=== PATIENT | female | born 1990 | race Two or more races ===

== ENCOUNTER 2017-01-17 14:00 | Observation (INO) | payer MEDICAID ==
[~2017-01-17 14:00] MED LIST: PREN-125 PO
[2017-01-17] MEDS ORDERED: LEVO125T66 PO (15:17)
== END 2017-01-17 15:50 | disposition home or self-care (01) | DRG 566 ==
LOC: LDRP 14:00
PROVIDERS: ADMIT Obstetrics & Gynecology; ATTEND Obstetrics & Gynecology
DX: O26.893 Other specified pregnancy related conditions, third trimester (principal); R10.2 Pelvic and perineal pain; Z3A.30 30 weeks gestation of pregnancy
CPT/HCPCS: 59025; 76818; 81002; G0378

== ENCOUNTER 2017-01-24 13:35 | Observation (INO) | payer MEDICAID ==
[~2017-01-24 13:35] MED LIST changes: +LEVO125T66 PO
[2017-01-24] MEDS ORDERED: LACTATED RINGER'S 1,000 ML IV ONE (15:06)
[2017-01-24 16:15] LABS: Urine Bilirubin Negative (Negative); Urine Blood Negative /uL (Negative); Urine Color Yellow (Yellow); Urine Glucose Normal (Normal); Urine Ketone Negative (Negative); Urine Mucus FEW (None Seen); Urine Nitrite Negative (Negative); Urine RBC 3 /hpf (0 - 4); Urine Squamous Epithelial Cell MOD /hpf (<5); Urine Urobilinogen Normal (Negative)
== END 2017-01-24 16:40 | disposition home or self-care (01) | DRG 563 ==
LOC: LDRP 13:35
PROVIDERS: ADMIT Specialist; ATTEND Specialist
DX: O60.03 Preterm labor without delivery, third trimester (principal); Z3A.31 31 weeks gestation of pregnancy
CPT/HCPCS: 59025; 76805; 76818; 80307; 81001; 81002; 96360; 96361; G0378; 96366

== ENCOUNTER 2017-01-31 13:55 | Observation (INO) | payer MEDICAID | END 2017-01-31 16:00 | disposition home or self-care (01) | DRG 566 | LOC: LDRP 13:55 | PROVIDERS: ADMIT Obstetrics & Gynecology; ATTEND Obstetrics & Gynecology | DX: O99.283 Endocrine, nutritional and metabolic diseases complicating pregnancy, third trimester (principal); E03.9 Hypothyroidism, unspecified; Z3A.32 32 weeks gestation of pregnancy | CPT/HCPCS: 59025; 76818; 81002; G0378 ==

== ENCOUNTER 2017-02-07 13:57 | Observation (INO) | payer MEDICAID | END 2017-02-07 17:10 | disposition home or self-care (01) | DRG 566 | LOC: LDRP 13:57 | PROVIDERS: ADMIT Obstetrics & Gynecology; ATTEND Obstetrics & Gynecology | DX: O99.283 Endocrine, nutritional and metabolic diseases complicating pregnancy, third trimester (principal); Z3A.33 33 weeks gestation of pregnancy | CPT/HCPCS: 59025; 76818; 81002; G0378 ==

== ENCOUNTER 2017-02-16 13:05 | Observation (INO) | payer MEDICAID | END 2017-02-16 15:20 | disposition home or self-care (01) | DRG 566 | LOC: LDRP 13:05 → UNDOADMOB 13:05 → LDRP 13:55 → UNDODISOB 15:20 | PROVIDERS: ADMIT Specialist; ATTEND Specialist | DX: O99.283 Endocrine, nutritional and metabolic diseases complicating pregnancy, third trimester (principal); Z3A.34 34 weeks gestation of pregnancy | CPT/HCPCS: 59025; 76818; 81002; G0378 ==

== ENCOUNTER 2017-02-21 14:15 | Observation (INO) | payer MEDICAID | END 2017-02-21 15:50 | disposition home or self-care (01) | DRG 566 | LOC: LDRP 14:15 | PROVIDERS: ADMIT Obstetrics & Gynecology; ATTEND Obstetrics & Gynecology | DX: O99.283 Endocrine, nutritional and metabolic diseases complicating pregnancy, third trimester (principal); Z3A.35 35 weeks gestation of pregnancy | CPT/HCPCS: 59025; 76818; 81002; G0378 ==

== ENCOUNTER 2017-03-07 14:10 | Observation (INO) | payer MEDICAID | END 2017-03-07 15:08 | disposition home or self-care (01) | DRG 566 | LOC: LDRP 14:10 | PROVIDERS: ADMIT Obstetrics & Gynecology; ATTEND Obstetrics & Gynecology | DX: O99.283 Endocrine, nutritional and metabolic diseases complicating pregnancy, third trimester (principal); Z3A.37 37 weeks gestation of pregnancy | CPT/HCPCS: 59025; 76818; 81002; G0378 ==